=== PATIENT | male | born 2000 | race Caucasian/White ===

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

== ENCOUNTER 2021-05-06 20:44 | Emergency (ER) | payer OTHER ==
[2021-05-06 20:51] VITALS: BP 123/74; PULSE 75; TEMP 98.1; BMI 30.7
== END 2021-05-06 21:34 | disposition home or self-care (01) ==
LOC: JERFT 20:44
DX: S60.450A Superficial foreign body of right index finger, initial encounter (principal)
CPT/HCPCS: 99281-25

== ENCOUNTER 2021-08-12 20:43 | Emergency (ER) | payer OTHER ==
[2021-08-12 20:54] VITALS: BP 130/73; PULSE 86; TEMP 98.5; BMI 30.6
[2021-08-12] MEDS ORDERED: TETRACAINE 0.5% OPHTH SOLN 2 ML BOTTLE ONE (21:47)
[2021-08-12] MEDS ORDERED: FLUORESCEIN NA 1 EA STRIP ONE (21:47)
== END 2021-08-12 21:57 | disposition home or self-care (01) ==
LOC: FER 20:43
DX: S05.02XA Injury of conjunctiva and corneal abrasion without foreign body, left eye, initial encounter (principal)
CPT/HCPCS: 99283-25

== ENCOUNTER 2022-05-07 19:40 | Emergency (ER) | payer OTHER ==
[2022-05-07 19:49] VITALS: BP 137/77; PULSE 76; TEMP 98.3; BMI 26.2
[2022-05-07] MEDS ORDERED: ERYTHROMYCIN 0.5% OPHTHALMIC OINTMENT 3.5 GM TUBE ONE (20:30)
== END 2022-05-07 23:57 | disposition home or self-care (01) ==
LOC: JERFT 19:40
DX: Z71.1 Person with feared health complaint in whom no diagnosis is made (principal)
CPT/HCPCS: 99283-25

== ENCOUNTER 2022-06-26 10:25 | Emergency (ER) | payer OTHER ==
[2022-06-26 10:38] VITALS: BP 152/74; PULSE 91; RESP 18; TEMP 98; BMI 25.2
== END 2022-06-26 11:25 | disposition home or self-care (01) ==
LOC: JER 10:25 → JERFT 10:25
DX: S09.90XA Unspecified injury of head, initial encounter (principal); W22.8XXA Striking against or struck by other objects, initial encounter
CPT/HCPCS: 99283-25

== ENCOUNTER 2024-03-02 20:22 | Emergency (ER) | payer OTHER ==
[2024-03-02 20:28] VITALS: BP 149/82; PULSE 85; RESP 16; TEMP 97.9; BMI 28.8
[2024-03-02] MEDS ORDERED: BACITRACIN 0.9 GM PACKET ONE (21:01)
[2024-03-02] MEDS: BACITRACIN 0.9 GM PACKET TP ONE (21:07)
[2024-03-02] MEDS ORDERED: BACITRACIN ZINC 15 GM TUBE TOPICAL OINTMENT ONE (21:35)
== END 2024-03-02 21:51 | disposition home or self-care (01) ==
LOC: JERFT 20:22
DX: S91.312A Laceration without foreign body, left foot, initial encounter (principal); W25.XXXA Contact with sharp glass, initial encounter; Y92.009 Unspecified place in unspecified non-institutional (private) residence as the place of occurrence of the external cause
CPT/HCPCS: 73630-TC-LT; 99283-25